=== PATIENT | male | born 1975 | race Caucasian/White ===

== ENCOUNTER 2020-11-12 10:00 | Outpatient (CLI) | payer OTHER, SELFPAY ==
[~2020-11-12] VITALS: Ht 188 cm; Wt 129.3 kg
== END 2020-11-12 11:00 | disposition home or self-care (01) ==
LOC: SLB 10:00 → EDSTATUS 11-16 07:30
PROVIDERS: ATTEND Otolaryngology
DX: Z01.812 Encounter for preprocedural laboratory examination (principal); Z20.822 Contact with and (suspected) exposure to COVID-19; D38.5 Neoplasm of uncertain behavior of other respiratory organs; J34.2 Deviated nasal septum
CPT/HCPCS: U0003